=== PATIENT | female | born 1995 | race Caucasian/White ===

== ENCOUNTER 2019-09-15 00:11 | Inpatient (IN) ==
[2019-09-15] MEDS ORDERED: DEXTROSE 5%-LACTATED RINGERS 1,000 ML IV PRN (00:20)
[2019-09-15] MEDS ORDERED: ONDANSETRON 4 MG TAB.RAPDIS PO PRN (00:20)
[2019-09-15] MEDS ORDERED: OXYTOCIN/DEXTROSE 5%-WATER 30 UNITS/500 ML BAG IV ONE ×2 (00:20→19:09)
[2019-09-15] MEDS ORDERED: RINGER'S SOLUTION,LACTATED 1,000 ML IV ONE (00:20)
[2019-09-15] MEDS: MISOPROSTOL 100 MCG TABLET VG PRN ×2 (01:31→05:36)
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
--- NOTE | 2019-09-15 08:03 | PN ---
Progess Note - Interim Date: 09/15/19 Time: 08:02 Narrative: 09/15/19 08:02 Patient becoming more uncomfortable with contractions Vital signs stable. Status post Cytotec 2 doses (last dose at 5:30 AM) FHT: 120 baseline, reassuring contractions q 2-3 min Cervix: Soft, fingertip/80%/-2 Impression: Intrauterine at 40 2/7 weeks induction of labor Plan: Continue present plan
--- NOTE | 2019-09-15 12:58 | PN ---
Progess Note - Interim Date: 09/15/19 Time: 12:57 Narrative: 09/15/19 12:57 Patient rating contractions as moderate Vital signs stable. Pitocin at 6 mu/min. FHT: 130 baseline, reassuring contractions q 2-3 min Cervix: Very posterior. Unable to determine dilation. 80% effaced, soft, -2 Impression: Intrauterine at 40 2/7 weeks induction of labor Plan: Continue present plan
[2019-09-15] MEDS ORDERED: ONDANSETRON HCL/PF 2 MG/ML VIAL IV PRN (14:54)
[2019-09-15] MEDS ORDERED: BUPIVACAINE HCL/0.9 % NACL/PF 250 ML EP PRN (14:54)
[2019-09-15] MEDS ORDERED: NALOXONE HCL 1 MG/1 ML SYRG IV PRN (14:54)
[2019-09-15] MEDS ORDERED: BUPIVACAINE HCL/PF 30 ML VIAL EP SCH (15:00)
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
--- NOTE | 2019-09-15 15:35 | ANES ---
Post Anesthesia Assessment - Vital Signs Vitals: Last Vital Signs Temp 36.7 C 09/15/19 01:11 Pulse 87 09/15/19 01:11 Resp 18 09/15/19 01:11 BP 130/83 09/15/19 01:11 Pulse Ox 99 09/15/19 01:11 Airway Patency: Normal - Mental Status Level Of Consciousness: Awake - N/V Assessment Nausea/Vomiting Presence: None Dehydration:: No
--- NOTE | 2019-09-15 15:35 | ANES ---
Anesthesia Procedure Note Procedure Note: ANESTHESIA PROCEDURE NOTE Date of Procedure: 09/15/2019. Time of procedure: 1520. Performed by: Az Peng CRNA Quad Stayer: None. Preprocedure diagnosis: Active labor. Post procedure diagnosis: Same. Procedure: Insertion of labor epidural. Indications: The patient is a 23-year-old female in active labor requesting labor epidural for pain management. Findings: See below. Details of the procedure: The patient was placed in a sitting position. DuraPrep as well as Betadine swabs X3 was applied to the patient's back. Patient was then draped in a sterile fashion. Lidocaine 1% was infiltrated to the skin and subcutaneous tissues at the level of the L3-4 interspace. The epidural space was identified using a 18-gauge Tuohy needle with [id number] technique. Epidural catheter was inserted to a depth of 11 centimeters at skin. Negative test dose was elicited using 3 mL of 1.5% preservative-free lidocaine plus epinephrine 1 200,000. The epidural catheter was then taped and secured in place. A loading dose of 8 mL of 0.25% preservative-free bupivacaine was administered to the epidural catheter after negative aspiration for blood and CSF. EBL: Minimal. Fluids: N/A. Specimen: N/A. Post procedure condition: The patient tolerated the procedure well. No complications were noted. Thank you for this consultation. Az Peng CRNA
--- NOTE | 2019-09-15 16:14 | PN ---
Progess Note - Interim Date: 09/15/19 Time: 16:12 Narrative: 09/15/19 16:12 Patient comfortable with epidural Vital signs stable. Pitocin at 10 mu/min. FHT: 120 baseline, reassuring contractions q 2-3 min Cervix: 9/0, AROM-clear Impression: Intrauterine at 40 2/7 weeks induction of labor for postdates, progressing well Plan: Anticipate normal spontaneous vaginal delivery soon.
[2019-09-15] MEDS ORDERED: HYDROCORTISONE 30 APPL TUBE TP PRN (19:09)
[2019-09-15] MEDS ORDERED: oxyCODONE HCL/ACETAMINOPHEN 1 TAB TABLET PO PRN (19:09)
[2019-09-15] MEDS ORDERED: SENNOSIDES 8.6 MG TABLET PO PRN (19:09)
[2019-09-15] MEDS ORDERED: BENZOCAINE/MENTHOL 81 SPRAY CAN TP PRN (19:09)
[2019-09-15] MEDS ORDERED: GLYCERIN/WITCH HAZEL LEAF 40 APPL BOX TP PRN (19:09)
[2019-09-15] MEDS ORDERED: IBUPROFEN 800 MG TABLET PO PRN (19:09)
[2019-09-15] MEDS ORDERED: BISACODYL 10 MG SUPP.RECT RC PRN (19:09)
--- NOTE | 2019-09-15 19:12 | OR ---
Operative Report - Dictated Report Narrative: Spontaneous vaginal delivery of vigorously crying viable female at 1850 on 09/15/2019 with Apgars 8 and 9, weighing 3608 g in DAMIÁN position. Cord clamping delayed approximately 1 minute Placenta delivered complete, intact, with three vessel cord Estimated blood loss: 100 mL Anesthesia: Epidural Lacerations: Second-degree vaginal laceration (4 cm) repaired with 3-0 Vicryl Rapide History for MU History for Definition: * The number of deliveries resulting in a live the patient experienced prior to current hospitalization * The previous delivery of live twins or any live multiple gestation is considered one live event. *If primagravida or nulliparous is documented select zero for the number of previous live births. Live Events: Live Events: 0
[2019-09-15] MEDS: DOCUSATE SODIUM 100 MG CAPSULE PO SCH (21:45)
[2019-09-15] MEDS: IBUPROFEN 800 MG TABLET PO PRN (23:17)
--- NOTE | 2019-09-16 08:52 | PN ---
Subjective - Date and Time Seen Date: 09/16/19 Time: 08:52 Objective - Vitals Vitals: Last Vital Signs Temp 36.5 C 09/16/19 07:33 Pulse 68 09/16/19 07:33 Resp 16 09/16/19 07:33 BP 131/67 09/16/19 07:33 Pulse Ox 98 09/16/19 07:33 Patient denies complaints. Breast-feeding well. Lochia wnl abdomen - soft, nontender Uterus -firm, at umbilicus - 1 no calf tenderness Impression: day #1 - s/p spontaneous vaginal delivery. Plan: Continue routine care Assessment/Plan - Problems/Diagnosis (1) Encounter for induction of labor Problem: Acute (2) Post-dates Problem: Acute Qualifiers: Post-term type: 40-42 weeks gestation Qualified Code(s): O48.0 - Post-term
[2019-09-16] MEDS: DOCUSATE SODIUM 100 MG CAPSULE PO SCH ×2 (10:08→21:04)
[2019-09-16] MEDS: IBUPROFEN 800 MG TABLET PO PRN (19:05)
[2019-09-17 07:08] VITALS: BP 113/54
--- NOTE | 2019-09-17 12:52 | PN ---
Subjective - Date and Time Seen Date: 09/17/19 Time: 12:46 Objective - Vitals Vitals: Last Vital Signs Temp 36.6 C 09/17/19 07:06 Pulse 64 09/17/19 07:06 Resp 16 09/17/19 07:06 BP 113/54 09/17/19 07:06 Pulse Ox 97 09/17/19 01:08 Patient denies complaints. Breast-feeding Lochia wnl abdomen - soft, nontender Uterus -firm, at umbilicus - 2 no calf tenderness Impression: day #2 - s/p spontaneous vaginal delivery. Plan: Routine discharge instructions Assessment/Plan - Problems/Diagnosis (1) Encounter for induction of labor Problem: Acute (2) Post-dates Problem: Acute Qualifiers: Post-term type: 40-42 weeks gestation Qualified Code(s): O48.0 - Post-term
== END 2019-09-17 14:15 | disposition home or self-care (01) | DRG 807 ==
LOC: OB 00:11
PROVIDERS: ADMIT Obstetrics & Gynecology; ATTEND Obstetrics & Gynecology
CPT/HCPCS: 59025